=== PATIENT | male | born 1970 | race Asian ===

== ENCOUNTER 2024-04-14 14:37 | Emergency (ER) | payer OTHER ==
[~2024-04-14] VITALS: Ht 172.7 cm; Wt 80.0 kg
[2024-04-14 14:50] VITALS: BP 153/83; PULSE 78; RESP 18; TEMP 97.2
[2024-04-14] MEDS ORDERED: IBUP-1554 PO (18:11)
== END 2024-04-14 18:39 | disposition home or self-care (01) ==
LOC: EMS 14:37
DX: S46.912A Strain of unspecified muscle, fascia and tendon at shoulder and upper arm level, left arm, initial encounter (principal); V99.XXXA Unspecified transport accident, initial encounter; Y93.89 Activity, other specified; Y92.89 Other specified places as the place of occurrence of the external cause; Y99.8 Other external cause status
CPT/HCPCS: 99284; 73030-TC; 73060-TC; Z7502